=== PATIENT | male | born 1965 | race Caucasian/White ===

== ENCOUNTER 2016-11-18 22:35 | Emergency (ER) | payer SELFPAY ==
[~2016-11-18] VITALS: Ht 188 cm; Wt 79.4 kg
--- NOTE | 2016-11-19 00:23 | PHYS DOC ---
Past Medical History Past Medical History: No Pertinent History Past Surgical History: Appendectomy, Other Additional Past Surgical Histo: back sx Alcohol Use: None Drug Use: Methamphetamine Social History Narrative: former Meth Adult General Chief Complaint Chief Complaint: ABDOMINAL PAIN HPI HPI Patient is a 50 year old male who presents with abdominal pain. Patient reports the past 2 days he has had periumbilical pain that he describes as a grabbing or twisting pain. No clear inciting event. Pain is worse when bending over, it is better with lying still. Pain is accompanied by nausea, and decreased appetite. Patient reports symptoms similar to when he had appendicitis. He has not taken anything for symptoms at home. No other acute complaints. Review of Systems Review of Systems Constitutional: Denies fever or chills Eyes: Denies change in visual acuity or eye pain HENT: Denies nasal congestion or sore throat Respiratory: Denies cough or shortness of breath Cardiovascular: Denies chest pain GI: Periumbilical abdominal pain, nausea, constipation. Denies vomiting, bloody stools or diarrhea : Denies dysuria or hematuria Musculoskeletal: Denies back pain or joint pain Integument: Denies rash or skin lesions Neurologic: Denies headache, focal weakness or sensory changes Current Medications Current Medications Current Medications Medications (Trade) Dose Ordered Sig/Ethan Start Time Stop Time Status Last Admin Dose Admin Ciprofloxacin (Cipro) 500 mg 1X ONCE 11/19/16 03:00 11/19/16 03:01 DC 11/19/16 03:24 500 MG Info (Do NOT chart on this entry -- for MONITORING) 1 each PRN DAILY PRN 11/19/16 01:15 11/19/16 03:38 DC Iohexol (Omnipaque 300 Mg/ml) 75 ml STK-MED ONCE 11/19/16 01:09 11/19/16 01:10 DC 11/19/16 01:22 75 ML Metronidazole (Flagyl) 500 mg 1X ONCE 11/19/16 03:00 11/19/16 03:01 DC 11/19/16 03:24 500 MG Morphine Sulfate 4 mg 1X ONCE 11/19/16 00:30 11/19/16 00:31 DC 11/19/16 00:37 4 MG Ondansetron HCl (Zofran) 4 mg 1X ONCE 11/19/16 00:30 11/19/16 00:31 DC 11/19/16 00:37 4 MG Sodium Chloride (Iv Sodium Chloride 0.9% 1000ml Bag) 1,000 ml @ 1,000 mls/hr Q1H 11/19/16 00:30 11/19/16 01:29 DC 11/19/16 00:33 1,000 MLS/HR Allergies Allergies Allergies Coded Allergies Type Severity Reaction Last Updated Verified No Known Drug Allergies 11/19/16 No Physical Exam Physical Exam Constitutional: Well developed, well nourished, no acute distress, non-toxic appearance HENT: Normocephalic, atraumatic, bilateral external ears normal Eyes: EOMI, conjunctiva normal, no discharge Neck: Normal range of motion, no stridor Cardiovascular: Heart rate normal, regular rhythm, no murmur Lungs & Thorax: Bilateral breath sounds clear to auscultation Abdomen: Bowel sounds normal, soft, non-distended, LLQ TTP without guarding or rebound Skin: Warm, dry, no erythema, no rash Extremities: No obvious deformity, no edema Neurologic: Alert and oriented X 3, no gross deficits noted Current Patient Data Vital Signs Vital Signs Date Time Temp Pulse Resp B/P Pulse Ox O2 Delivery O2 Flow Rate FiO2 11/19/16 03:00 185/74 95 Room Air 11/19/16 00:37 18 11/18/16 23:56 98.6 83 98.6 Lab Values Laboratory Tests Test 11/19/16 00:03 11/19/16 00:43 White Blood Count 11.1x10^3/uL (4.0-11.0) H Red Blood Count 5.78x10^6/uL (4.30-5.70) H Hemoglobin 16.3g/dL (13.0-17.5) Hematocrit 49.2% (39.0-53.0) Mean Corpuscular Volume 85fL (79-100) Mean Corpuscular Hemoglobin 28pg (25-35) Mean Corpuscular Hemoglobin Concent 33g/dL (31-37) Red Cell Distribution Width 15.0% (11.5-14.5) H Platelet Count 231x10^3/uL (140-400) Neutrophils (%) (Auto) 76% (31-73) H Lymphocytes (%) (Auto) 11% (24-48) L Monocytes (%) (Auto) 11% (0-9) H Eosinophils (%) (Auto) 3% (0-3) Basophils (%) (Auto) 0% (0-3) Neutrophils # (Auto) 8.4x10^3uL (1.8-7.7) H Lymphocytes # (Auto) 1.2x10^3/uL (1.0-4.8) Monocytes # (Auto) 1.2x10^3/uL (0.0-1.1) H Eosinophils # (Auto) 0.3x10^3/uL (0.0-0.7) Basophils # (Auto) 0.0x10^3/uL (0.0-0.2) Sodium Level 139mmol/L (136-145) Potassium Level 4.2mmol/L (3.5-5.1) Chloride Level 101mmol/L (98-107) Carbon Dioxide Level 28mmol/L (21-32) Anion Gap 10 (6-14) Blood Urea Nitrogen 10mg/dL (8-26) Creatinine 1.1mg/dL (0.7-1.3) Estimated GFR (Cockcroft-Gault) 70.6 BUN/Creatinine Ratio 9 (6-20) Glucose Level 114mg/dL (70-99) H Calcium Level 9.1mg/dL (8.5-10.1) Total Bilirubin 0.5mg/dL (0.2-1.0) Aspartate Amino Transferase (AST) 18U/L (15-37) Alanine Aminotransferase (ALT) 23U/L (16-63) Alkaline Phosphatase 100U/L (46-116) Total Protein 8.1g/dL (6.4-8.2) Albumin 3.9g/dL (3.4-5.0) Albumin/Globulin Ratio 0.9 (1.0-1.7) L Lipase 59U/L (73-393) L Urine Collection Type Unknown Urine Color [place] Urine Clarity Turbid Urine pH 6.0 Urine Specific [place] 1.025 Urine Protein Negativemg/dL (NEG-TRACE) Urine Glucose (UA) Negativemg/dL (NEG) Urine Ketones (Stick) Tracemg/dL (NEG) Urine Blood Negative (NEG) Urine Nitrite Negative (NEG) Urine Bilirubin Small (NEG) Urine Urobilinogen Dipstick 1.0mg/dL (0.2 mg/dL) Urine Leukocyte Esterase Small (NEG) Urine RBC Occ/HPF (0-2) Urine WBC 5-10/HPF (0-4) Urine Squamous Epithelial Cells Occ/LPF Urine Bacteria 0/HPF (0-FEW) Urine Mucus Marked/LPF Laboratory Tests 11/19/16 00:03 Laboratory Tests 11/19/16 00:03 EKG EKG [] Radiology/Procedures Radiology/Procedures CT A/P: IMPRESSION: 1. Distended, fluid-filled small bowel loops are present in the left abdomen, with a gradual transition to decompressed small bowel within the left upper abdomen with no focal abnormality present. Findings may be secondary to enteritis, although an early obstruction is not excluded. 2. Fat containing right inguinal hernia. Course & Med Decision Making Course & Med Decision Making Pertinent Labs and Imaging studies reviewed. (See chart for details) Patient is 50-year-old male who presents with abdominal pain and nausea. Possible diverticulitis given left lower quadrant tenderness to palpation. Will check labs, CT abdomen/pelvis to evaluate. IV fluids, pain medication, nausea medication ordered for symptom relief. Labs show minimal leukocytosis, otherwise unremarkable. CT results as above. Patient given dose of Cipro and Flagyl to cover for possible infectious enteritis. Discussed results with patient, who is feeling better at this time. Will discharge home with prescription for Cipro, Flagyl, pain meds, nausea meds. Given instructions for follow-up and return precautions. Dragon Disclaimer Dragon Disclaimer This electronic medical record was generated, in whole or in part, using a voice recognition dictation system. Departure Departure Impression: Primary Impression: Enteritis Disposition: 01 HOME, SELF-CARE Condition: STABLE Referrals: Wood VÁSQUEZ MD Patient Instructions: Abdominal Pain Additional Instructions: Thank you for allowing us to provide care today in the Emergency Department. Take the provided medication as directed. Use caution after taking the pain medication as it can make you drowsy. Schedule a follow up appointment with your primary care doctor. Return promptly to the Emergency Department if you develop any new or concerning symptoms. Scripts Metronidazole (Flagyl)500 Mg Tablet1 Tab PO BID #14 TAB Prov:LEONARDO HATFIELD MD 11/19/16 Ciprofloxacin Hcl (Cipro)500 Mg Tablet1 Tab PO BID #14 TAB Prov:LEONARDO HATFIELD MD 11/19/16 Ondansetron (Zofran Odt)4 Mg Tab.rapdis1 Tab SL Q8HRS PRN NAUSEA #15 TAB Prov:LEONARDO HATFIELD MD 11/19/16 Hydrocodone/[place]ap 5-325 ([place] 5-325 Tablet)1 Each Tablet1 Tab PO PRN Q6HRS PRN PAIN #20 TAB Prov:LEONARDO HATFIELD MD 11/19/16 LEONARDO HATFIELD MD Nov 19, 2016 00:23
[2016-11-19] MEDS ORDERED: IV NORMAL SALINE 1000ML BAG 1,000 ML IV SCH (00:30)
[2016-11-19] MEDS ORDERED: ONDANSETRON PF 4 MG/2 ML VIAL. IV ONE (00:30)
[2016-11-19] MEDS ORDERED: MORPHINE SULFATE 4 MG/ML DISP.SYRIN. IV ONE (00:30)
[2016-11-19 00:34] LABS: BASO % 0 % (0-3); EOS % 3 % (0-3); HEMATOCRIT 49.2 % (39.0-53.0); HEMOGLOBIN 16.3 g/dL (13.0-17.5); LYMPH # 1.2 x10^3/uL (1.0-4.8); LYMPH % 11 % (24-48); MEAN CORPUSCULAR HEMOGLOBIN 28 pg (25-35); MEAN CORPUSCULAR HGB CONC 33 g/dL (31-37); MEAN CORPUSCULAR VOLUME 85 fL (79-100); MONO % 11 % (0-9); NEUT % 76 % (31-73); PLATELET COUNT 231 x10^3/uL (140-400); RED BLOOD COUNT 5.78 x10^6/uL (4.30-5.70); WHITE BLOOD COUNT 11.1 x10^3/uL (4.0-11.0)
[2016-11-19 00:42] LABS: CALCIUM 9.1 mg/dL (8.5-10.1); CREATININE 1.1 mg/dL (0.7-1.3); GFR 70.6; POTASSIUM 4.2 mmol/L (3.5-5.1)
[2016-11-19 00:47] LABS: ALBUMIN 3.9 g/dL (3.4-5.0); ALBUMIN/GLOBULIN RATIO 0.9 (1.0-1.7); TOTAL BILIRUBIN 0.5 mg/dL (0.2-1.0); TOTAL PROTEIN 8.1 g/dL (6.4-8.2)
[2016-11-19 00:50] LABS: BILIRUBIN,URINE SMALL (NEG); GLUCOSE,URINE NEGATIVE (NEG); NITRITE,URINE NEGATIVE (NEG); PROTEIN,URINE NEGATIVE (NEG-TRACE)
[2016-11-19 00:56] LABS: BACTERIA,URINE 0 /HPF (0-FEW); RBC,URINE OCC /HPF (0-2); SQUAMOUS EPITHELIAL CELL,UR OCC /LPF
[2016-11-19] MEDS ORDERED: IOHEXOL 300 MG/ML 75 ML VIAL ONE (01:09)
[2016-11-19] MEDS ORDERED: CONTRAST GIVEN MC PRN (01:15)
[2016-11-19] MEDS ORDERED: IOHEXOL 300 MG/ML 75 ML VIAL IV ONE (01:15)
--- NOTE | 2016-11-19 02:41 | RAD ---
INDICATION: Left lower quadrant pain COMPARISON: None TECHNIQUE: Axial CT images obtained through the abdomen and pelvis following the intravenous administration of 75 cc of Omni 300. Coronal and sagittal reformats are provided. One or more of the following individualized dose reduction techniques were utilized for this examination: 1. Automated exposure control; 2. Adjustment of the mA and/or kV according to patient size; 3. Use of iterative reconstruction technique. FINDINGS: Visualized lung bases demonstrate bibasilar atelectasis. The liver, spleen, gallbladder, pancreas, adrenal glands and bilateral kidneys demonstrate no focal abnormality. Distended, fluid-filled small bowel loops are present within the left abdomen, measuring up to 2.8 cm in diameter. A gradual transition zone is present in the mid to left upper abdomen, without a focal mass or abnormality seen. S small bowel wall enhancement is maintained. The urinary bladder demonstrates no focal abnormality. No intra-abdominal or pelvic free fluid, free air or significant lymphadenopathy is seen. The aorta is normal in caliber. A fat containing right inguinal hernia is present. Visualized osseous structures and overlying soft tissues demonstrate no acute or suspicious finding. IMPRESSION: 1. Distended, fluid-filled small bowel loops are present in the left abdomen, with a gradual transition to decompressed small bowel within the left upper abdomen with no focal abnormality present. Findings may be secondary to enteritis, although an early obstruction is not excluded. 2. Fat containing right inguinal hernia. Electronically signed by: Holly Pascual (Nov 19, 2016 02:38:25)
[2016-11-19 03:00] VITALS: BP 185/74
[2016-11-19] MEDS ORDERED: CIPROFLOXACIN HCL 250 MG TABLET PO ONE (03:00)
[2016-11-19] MEDS ORDERED: METRONIDAZOLE 500 MG TABLET. PO ONE (03:00)
[2016-11-19] MEDS ORDERED: ONDA4TAB10 SL (03:05)
[2016-11-19] MEDS ORDERED: HYDR-971 PO (03:05)
[2016-11-19] MEDS ORDERED: CIPR500T94 PO (03:05)
[2016-11-19] MEDS ORDERED: METR500T PO (03:05)
--- NOTE | 2016-11-21 15:18 | VNOTE ---
CALL BACK NOTE CALL BACK Microbiology 11/19/16 Urine Culture - Final, Complete 11/19/16 Urine Culture Result 1 (LORENA) - Final, Complete 11/19/16 Antimicrobic Susceptibility - Final, Complete Patients urine positive for E. coli patient was placed on Cipro at discharge which is susceptible to the infection. No change needed at this time. MARIAM ROY NP Nov 21, 2016 15:18
== END 2016-11-19 03:32 | disposition home or self-care (01) ==
LOC: ER 22:35
DX: K52.9 Noninfective gastroenteritis and colitis, unspecified (principal); F15.10 Other stimulant abuse, uncomplicated; Z90.49 Acquired absence of other specified parts of digestive tract
CPT/HCPCS: 36415; 74177; 80053; 81001; 83690; 85027; 87086; 87186; 96361; 96374; 96375; 99285; J2270; J2405; J7030; Q9967

== ENCOUNTER 2020-11-06 15:21 | Emergency (ER) | payer OTHER ==
[~2020-11-06] VITALS: Ht 185.4 cm; Wt 89.0 kg
[~2020-11-06 15:21] MED LIST: CIPR500T94 PO; HYDR-3164 PO; METR500T PO; ONDA4TAB10 SL
--- NOTE | 2020-11-06 17:23 | ED.ADGEN ---
Past Medical History Past Medical History: No Pertinent History, Stroke Past Medical History Inguinal hernia Past Surgical History: Appendectomy, Other Additional Past Surgical Histo: back sx Smoking Status: Current Every Day Smoker Alcohol Use: None Drug Use: Methamphetamine General Adult EDM: Chief Complaint: GROIN PAIN HPI: HPI: Patient is a 54-year-old male who arrives ambulatory to the emergency department complaining of a 3-day history of progressive suprapubic as well as right testicular pain. Patient reports he has had a known hernia for several years. Patient reports normally when he experiences pain and fullness of the right testicle it subsides. Patient states in the past 3 days however he has not experienced any reduction of his pain/hernia. Patient states this is worse when he eats as he believes that he can feel food moving through bowel in his testicle. The patient states when he is at rest he experiences some relief soriano nohemy he has considerable pain. He denies any previous illness. He further denies dysuria. Moreover he denies any history of fever. He is awake, alert and nontoxic appearing. Review of Systems: Review of Systems: Constitutional: Denies fever or chills. [] Eyes: Denies change in visual acuity. [] HENT: Denies nasal congestion or sore throat. [] Respiratory: Denies cough or shortness of breath. [] Cardiovascular: Denies chest pain or edema. [] GI: Denies abdominal pain, nausea, vomiting, bloody stools or diarrhea. [] : Reports testicular pain (right-sided). Denies dysuria. [] Musculoskeletal: Denies back pain or joint pain. [] Integument: Denies rash. [] Neurologic: Denies headache, focal weakness or sensory changes. [] Endocrine: Denies polyuria or polydipsia. [] Lymphatic: Denies swollen glands. [] Psychiatric: Denies depression or anxiety. [] Family History: Family History: Noncontributory Current Medications: Current Medications Medications (Trade) Dose Ordered Sig/Ethan Start Time Stop Time Status Last Admin Dose Admin Amlodipine Besylate (Norvasc) 5 mg 1X ONCE 11/06/20 19:15 11/06/20 19:16 DC 11/06/20 19:29 5 MG Info (CONTRAST GIVEN -- Rx MONITORING) 1 each PRN DAILY PRN 11/06/20 18:30 11/08/20 18:29 Iohexol (Omnipaque 300 Mg/ml) 75 ml 1X ONCE 11/06/20 18:30 11/06/20 18:31 DC 11/06/20 18:23 75 ML Morphine Sulfate (Morphine Sulfate) 4 mg 1X ONCE 11/06/20 18:00 11/06/20 18:01 DC 11/06/20 18:04 4 MG Ondansetron HCl (Zofran) 4 mg 1X ONCE 11/06/20 18:00 11/06/20 18:01 DC 11/06/20 18:04 4 MG Allergies: Allergies: Allergies Coded Allergies Type Severity Reaction Last Updated Verified No Known Drug Allergies 11/19/16 No Physical Exam: PE: Constitutional: Well developed, well nourished, no acute distress, non-toxic appearance. [] HENT: Normocephalic, atraumatic, bilateral external ears normal, oropharynx moist, no oral exudates, nose normal. [] Eyes: PERRLA, EOMI, conjunctiva normal, no discharge. [] Neck: Normal range of motion, no tenderness, supple, no stridor. [] Cardiovascular:Heart rate regular rhythm, no murmur [] Lungs & Thorax: Bilateral breath sounds clear to auscultation [] Abdomen: Bowel sounds normal, soft, no tenderness, no masses, no pulsatile masses. Genitourinary: Testicles are palpable bilaterally without evidence of any penile lesions or discharge. There is swelling to the right side of the scrotum with what feels like bowel. The patient is sensitive to this however he is not experiencing pain out of proportion to the examination. [] Skin: Warm, dry, no erythema, no rash. [] Back: No tenderness, no CVA tenderness. [] Extremities: No tenderness, no cyanosis, no clubbing, ROM intact, no edema. [] Neurologic: Alert and oriented X 3, normal motor function, normal sensory function, no focal deficits noted. [] Psychologic: Affect normal, judgement normal, mood normal. [] Current Patient Data: Labs: Laboratory Tests Test 11/06/20 17:48 11/06/20 18:50 White Blood Count 11.8 x10^3/uL (4.0-11.0) H Red Blood Count 5.59 x10^6/uL (4.30-5.70) Hemoglobin 16.2 g/dL (13.0-17.5) Hematocrit 47.4 % (39.0-53.0) Mean Corpuscular Volume 85 fL (79-100) Mean Corpuscular Hemoglobin 29 pg (25-35) Mean Corpuscular Hemoglobin Concent 34 g/dL (31-37) Red Cell Distribution Width 14.3 % (11.5-14.5) Platelet Count 273 x10^3/uL (140-400) Neutrophils (%) (Auto) 72 % (31-73) Lymphocytes (%) (Auto) 17 % (24-48) L Monocytes (%) (Auto) 8 % (0-9) Eosinophils (%) (Auto) 3 % (0-3) Basophils (%) (Auto) 1 % (0-3) Neutrophils # (Auto) 8.5 x10^3/uL (1.8-7.7) H Lymphocytes # (Auto) 2.0 x10^3/uL (1.0-4.8) Monocytes # (Auto) 0.9 x10^3/uL (0.0-1.1) Eosinophils # (Auto) 0.3 x10^3/uL (0.0-0.7) Basophils # (Auto) 0.1 x10^3/uL (0.0-0.2) Sodium Level 140 mmol/L (136-145) Potassium Level 4.6 mmol/L (3.5-5.1) Chloride Level 102 mmol/L (98-107) Carbon Dioxide Level 31 mmol/L (21-32) Anion Gap 7 (6-14) Blood Urea Nitrogen 11 mg/dL (8-26) Creatinine 1.1 mg/dL (0.7-1.3) Estimated GFR (Cockcroft-Gault) 69.5 Glucose Level 102 mg/dL (70-99) H Calcium Level 9.3 mg/dL (8.5-10.1) Urine Collection Type Unknown Urine Color Yellow Urine Clarity Clear Urine pH 6.0 (<5.0-8.0) Urine Specific [place] 1.020 (1.000-1.030) Urine Protein Negative mg/dL (NEG-TRACE) Urine Glucose (UA) Negative mg/dL (NEG) Urine Ketones (Stick) Negative mg/dL (NEG) Urine Blood Negative (NEG) Urine Nitrite Negative (NEG) Urine Bilirubin Negative (NEG) Urine Urobilinogen Dipstick 0.2 mg/dL (0.2 mg/dL) Urine Leukocyte Esterase Negative (NEG) Urine RBC 0 /HPF (0-2) Urine WBC 1-4 /HPF (0-4) Urine Squamous Epithelial Cells Occ /LPF Urine Bacteria Few /HPF (0-FEW) Urine Mucus Slight /LPF Laboratory Tests 11/06/20 17:48 Laboratory Tests 11/06/20 17:48 Vital Signs: Vital Signs Date Time Temp Pulse Resp B/P (MAP) Pulse Ox O2 Delivery O2 Flow Rate FiO2 11/06/20 19:29 97 171/111 11/06/20 17:36 97.4 18 98 Room Air 97.4 EKG: EKG: [] Heart Score: Risk Factors: Risk Factors: DM, Current or recent (<one month) smoker, HTN, HLP, family history of CAD, obesity. Risk Scores: Score 0 - 3: 2.5% MACE over next 6 weeks - Discharge Home Score 4 - 6: 20.3% MACE over next 6 weeks - Admit for Clinical Observation Score 7 - 10: 72.7% MACE over next 6 weeks - Early Invasive Strategies Radiology/Procedures: Radiology/Procedures: [] Course & Med Decision Making: Course & Med Decision Making Pertinent Labs and Imaging studies reviewed. (See chart for details) The patient still has lab work as well as imaging that is outstanding. The patient has been provided pain medication after consultation with Dr. Alas. The patient's care will be transferred to Dr. Boucher for further evaluation and care. [] 19:55 -I assumed care of the patient [id number]. Briefly this is a 53-year-old male with a chronic right inguinal hernia presents emergency department worsening pain in the area. Patient does have outpatient follow-up for his right inguinal hernia but due to worsening pain labs and CT scan were performed here. No evidence of acute strangulation or bowel involvement. I was able to give the patient pain medication and the inguinal hernia was successfully reduced here in the emergency department. Patient tolerated this well. At this time feel the patient can be safely discharged home is plan to follow-up with Dr. Alas for further management. I spoken with the patient and her caregivers. I explained the patient's condition, diagnoses and treatment plan based on the information available to me at this time. I have answered the patient and her caregiver's questions and addressed any concerns. The patient and her caregivers have a good understanding of patient's diagnosis, condition and treatment plan as can be expected at this point. Vital signs have been stable. Patient's condition is stable and appropriate for discharge from the emergency department. Patient will pursue further outpatient evaluation with primary care physician or other designated or consulting physician as outlined in the discharge instructions. The patient and/or caregivers are agreeable to this plan of care and follow-up instructions have been explained in detail. The patient and/or caregivers have received these instructions in written form and have expressed an understanding of the discharge instructions. The patient and/or caregivers are aware that any significant change of condition or worsening of symptoms should prompt immediate return to this or the closest emergency department or call to 911. Uma Disclaimer: Uma Disclaimer: This electronic medical record was generated, in whole or in part, using a voice recognition dictation system. Departure Departure Impression: Primary Impression: Inguinal hernia Disposition: 01 DC HOME SELF CARE/HOMELESS Condition: GOOD Referrals: NO PCP (PCP) KOLTON ALAS MD Patient Instructions: Inguinal Hernia, Adult Additional Instructions: EMERGENCY DEPARTMENT GENERAL DISCHARGE INSTRUCTIONS Thank you for coming to [facility] Emergency Department (ED) today and trusting us with you care. We trust that you had a positive experience in our Emergency Department. If you wish to speak to the department management, you may call the Director at [phone]. YOUR FOLLOW UP INSTRUCTIONS ARE FOLLOWS: 1. Do you have a private Doctor? If you do not have a private doctor, please ask for a resource list of physicians or clinics that may be able to assist you with follow up care. 2. The Emergency Physicain has interpreted your x-rays. The X-Ray specialist will also review them. If there is a change in the findings, you will be notified in 48 hours when at all possible. 3. A lab test or culture has been done, your results will be reviewed and you will be notified if you need a change in treatment. ADDITIONAL INSTRUCTIONS AND INFORMATION: 1. Your care today has been supervised by a physician who is specially trained in emergency care. Many problems require more than one evaluation for a complete diagnosis and treatment. We recommend that you schedule your follow up appointment as recommended to ensure complete treatment of you illness or injury. If you are unable to obtain follow up care and continue to have a problem, or if your condition worsens, we recommend that you return to the ED. 2. We are not able to safely determine your condition over the phone nor are we able to give sound medical advice over the phone. For these safety reasons, if you call for medical advice we will ask you to come to the ED for further evaluation. 3. If you have any questions regarding these discharge instructions please call the ED at [phone]. SAFETY INFORMATION: In the interest of safety, wellness, and injury prevention; we encourage you to wear your sealbelt, if you smoke; quite smoking, and we encourage family to use a protective helmet for bicycling and other sporting events that present an increased risk for head injury. IF YOUR SYMPTOMS WORSEN OR NEW SYMPTOMS DEVELOP, OR YOU HAVE CONCERNS ABOUT YOUR CONDITION; OR IF YOUR CONDITION WORSENS WHILE YOU ARE WAITING FOR YOUR FOLLOW UP APPOINTMENT; EITHER CONTACT YOUR PRIMARY CARE DOCTOR, THE PHYSICIAN WHOSE NAME AND NUMBER YOU WERE GIVEN, OR RETURN TO THE ED IMMEDIATELY. MIGUEL ANGEL COKER DO Nov 06, 2020 17:23 CRISTY BOUCHER MD Nov 06, 2020 19:58
[2020-11-06 18:00] LABS: BASO # 0.1 x10^3/uL (0.0-0.2); BASO % 1 % (0-3); EOS # 0.3 x10^3/uL (0.0-0.7); EOS % 3 % (0-3); HEMATOCRIT 47.4 % (39.0-53.0); HEMOGLOBIN 16.2 g/dL (13.0-17.5); LYMPH % 17 % (24-48); MEAN CORPUSCULAR HEMOGLOBIN 29 pg (25-35); MEAN CORPUSCULAR HGB CONC 34 g/dL (31-37); MEAN CORPUSCULAR VOLUME 85 fL (79-100); MONO # 0.9 x10^3/uL (0.0-1.1); MONO % 8 % (0-9); NEUT # 8.5 x10^3/uL (1.8-7.7); NEUT % 72 % (31-73); PLATELET COUNT 273 x10^3/uL (140-400); RED BLOOD COUNT 5.59 x10^6/uL (4.30-5.70); RED CELL DISTRIBUTION WIDTH 14.3 % (11.5-14.5); WHITE BLOOD COUNT 11.8 x10^3/uL (4.0-11.0)
[2020-11-06] MEDS: MORPHINE SULFATE 4 MG/ML VIAL. IV ONE (18:04)
[2020-11-06] MEDS: ONDANSETRON PF 4 MG/2 ML VIAL. IVP ONE (18:04)
[2020-11-06 18:11] LABS: CALCIUM 9.3 mg/dL (8.5-10.1); CREATININE 1.1 mg/dL (0.7-1.3); GFR 69.5; POTASSIUM 4.6 mmol/L (3.5-5.1)
[2020-11-06] MEDS: IOHEXOL 300 MG/ML 100ML VIAL. IV ONE (18:23)
[2020-11-06] MEDS ORDERED: CONTRAST GIVEN. MC PRN (18:30)
--- NOTE | 2020-11-06 18:54 | RAD ---
Examination: CT of the abdomen pelvis with IV contrast HISTORY: History of right-sided testicular pain, hernia COMPARISON: None available TECHNIQUE: Axial CT images of the abdomen pelvis were performed IV contrast. Coronal sagittal reforma ts are performed Exposure: One or more of the following individualized dose reduction techniques were utilized for thi s examination: 1. Automated exposure control 2. Adjustment of the mA and/or kV according to patient size 3. Use of iterative reconstruction technique FINDINGS: Mild bibasilar lung atelectasis. No evidence of free air identified in the abdomen Mild decreased attenuation noted in the liver likely hepatic steatosis. The spleen, adrenals grossly appears unremarkable. The gallbladder is mildly distended. The stomach is mildly distended with visua lized pancreas grossly appears unremarkable. The small bowel is nondilated. Feces and gas noted in th e colon. The urinary bladder is mildly distended Moderate-sized fat-containing right inguinal hernia is unchanged. The bilateral kidneys enhance symme trically. Mild degenerative changes thoracolumbar spine IMPRESSION: 1. Unchanged moderate-sized fat-containing right inguinal hernia extending into the right scrotal re gion. 2. Mild hepatic steatosis. Electronically signed by: Terence Ross MD (11/06/2020 6:52 PM) [id number]
[2020-11-06 19:02] LABS: BILIRUBIN,URINE NEGATIVE (NEG); CLARITY,URINE CLEAR; COLOR,URINE YELLOW; NITRITE,URINE NEGATIVE (NEG); PROTEIN,URINE NEGATIVE (NEG-TRACE); UROBILINOGEN,URINE 0.2 mg/dL (0.2 mg/dL)
[2020-11-06 19:14] LABS: BACTERIA,URINE FEW /HPF (0-FEW)
[2020-11-06 19:15] LABS: RBC,URINE 0 /HPF (0-2)
[2020-11-06] MEDS: amLODIPine BESYLATE 5 MG TABLET PO ONE (19:29)
[2020-11-06 20:26] VITALS: BP 166/93
== END 2020-11-06 20:41 | disposition home or self-care (01) ==
LOC: ER 15:21
DX: K40.90 Unilateral inguinal hernia, without obstruction or gangrene, not specified as recurrent (principal); F17.200 Nicotine dependence, unspecified, uncomplicated; Z90.89 Acquired absence of other organs
CPT/HCPCS: 36415; 74177; 80048; 81001; 85025; 96374; 96375; 99285; J2270; J2405; Q9967